=== PATIENT | female | born 1985 | race Caucasian/White ===

== ENCOUNTER 2020-05-01 07:54 | Inpatient (IN) ==
[2020-05-01] MEDS ORDERED: OXYTOCIN 30 UNITS/500 ML BAG IV PRN ×2 (08:17→09:00)
[2020-05-01] MEDS ORDERED: LACTATED RINGER'S 1,000 ML IV PRN (08:17)
[2020-05-01 08:41] LABS: Hematocrit (blood only) 38.5 % (37-47); Hemoglobin 13.1 g/dL (12.0-16.0); Mean Corpuscular Hemoglobin 30.8 pg (25-34); Mean Corpuscular Volume 90.6 fL (80-100); Mean Platelet Volume 10.3 fL (7.4-10.4); Platelet Count 202 K/uL (130-400); RDW Coefficient of Variation 14.4 % (11.5-14.5); RDW Standard Deviation 47.2 fL (36.4-46.3); Red Blood Count 4.25 M/uL (4.2-5.4); White Blood Count 12.12 K/uL (4.8-10.8)
--- NOTE | 2020-05-01 14:37 | Labor Progress Brief Note ---
Date of Service May 01, 2020 Subjective Uncomfortable. FHT Cat 1 [place] Q 2 SVE 7-8/100/-1 AROM clear fluid. Anticipate . Assessment & Plan Admission and Anticipated Discharge Date Admission Date: May 01, 2020 Results & Data ([facility]) Vital Signs (Past 12 Hours) Vital Signs Temp Pulse Resp BP 05/01/20 14:18 84 107/62 05/01/20 14:03 87 98/62 L 05/01/20 12:16 90 107/59 L 05/01/20 11:25 81 111/53 L 05/01/20 11:24 36.5 C 05/01/20 10:16 95 H 93/52 L 05/01/20 08:06 96 H 117/64 05/01/20 08:05 36.5 C 18 Coding Level of Care Code None
[2020-05-01] MEDS ORDERED: LIDOCAINE HCL 1% 20 ML VIAL ONE ×2 (14:59→16:31)
--- NOTE | 2020-05-01 15:21 | Delivery Summary ---
Vaginal Delivery Summary Date of Service May 01, 2020 Vaginal Delivery Summary Vaginal Delivery Summary: Pre-delivery diagnoses: 34yo @ 40 6/7, IOL for postdates Post-delivery diagnoses: same Procedure: spontaneous vaginal delivery, repair of 1st degree perineal laceration Surgeon: Leigha Lauren DO Complications: none Findings: Viable male . Apgars: 9/9. Weight pending, please see nursery records Estimated blood loss: 300ml Description of delivery: The patient progressed to complete with epidural anesthesia. She then began to push. She spontaneously vaginally delivered a viable from the cephalic presentation. The head delivered in GAVINO position. Posterior hand delivered spontaneously, therefore the posterior arm was swept midline and delivered. The anterior shoulder delivered, followed by the posterior shoulder, followed by the body. The baby was placed on mother's abdomen and a spontaneous cry was heard. Delayed cord clamping was employed, and the cord was doubly clamped and cut. Cord blood was obtained. The placenta was delivered spontaneously intact with a 3-vessel cord. The uterus and vagina were swept of clots and debris. IV pitocin was given. The uterus became firm. The cervix, vagina, and perineum were inspected and lidocaine was infused, and 1st degree perineal lacerationwas repaired. Excellent hemostasis was observed. The mother and baby are recovering in stable and good condition in the room. Sponge, needle and instrument counts were correct x 2. Leigha Lauren DO [facility] Vaginal Delivery Charge Vaginal Delivery Codes: 97468 global code for the antepartum, delivery, and post-
[2020-05-01] MEDS ORDERED: ACETAMINOPHEN 325 MG TAB PO PRN (15:37)
[2020-05-01] MEDS ORDERED: bisacodyL 10 MG SUPP PR PRN (15:37)
[2020-05-01] MEDS ORDERED: BENZOCAINE 20% AER SPR 82.5 GM CAN EXT PRN (15:37)
[2020-05-01] MEDS ORDERED: oxyCODONE/ACETAMINOPHEN 5mg/325mg TAB PO PRN (15:37)
[2020-05-01] MEDS ORDERED: SUPERCREAM 0.870% 15 GM JAR EXT PRN (15:37)
[2020-05-01] MEDS ORDERED: HYDROCORTISONE ACETATE 25 MG SUPP PR PRN (15:37)
[2020-05-01] MEDS: IBUPROFEN 600 MG TAB PO PRN ×2 (16:00→20:16)
[2020-05-01] MEDS ORDERED: PROMETHAZINE HCL 12.5 MG in SODIUM CHLORIDE 0.9% 50 ML IV STA (16:44)
[2020-05-01] MEDS: DOCUSATE SODIUM 100 MG CAP PO PRN (20:16)
--- NOTE | 2020-05-01 22:38 | History & Physical Report ---
Date of Service May 01, 2020 Assessment & Plan (1) Supervision of normal intrauterine in multigravida: Admit to L&D, pitocin. Plans for no epidural. Admission and Anticipated Discharge Date Admission Date: May 01, 2020 History of Present Illness Chief Complaint: IOL Primary Care Provider: Leslie Schumacher MD Late entry: 34yo @ 40 6/7. IOL for postdates. Uncomplicated . Allergies Allergy/AdvReac Type Severity Reaction Status Date / Time No Known Allergies Allergy Verified 05/01/20 08:17 Home Medications Medication Instructions Recorded Confirmed Type prenat.vits,mirian,glt-lahp-vrihr 1 tab PO DAILY #90 tab 02/05/20 05/01/20 Rx breast pump #1 ea 04/15/20 04/30/20 Rx Patient History Medical History Hx of varicella Normal vaginal delivery Surgical History No pertinent past surgical history Family History Grandfather (Paternal) Diabetes Social History Smoking Status: Never smoker Second Hand Exposure: No; Hx Alcohol Use: No Hx Substance Use: No Preferred Language: Portuguese Outreach Librarian Required: No Beliefs That Will Affect Care: None marital status: marital status details: Kameron Whiteside (38) [phone] Current Living Situation: Family Current Living Situation Comment: lives with and son current occupational status: unemployed 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 Other Information That Helps Us Care for You: No Feels Safe at Home: Yes Safety Concerns: Feels Safe At This Time Assistive Devices: None Review of Systems All systems reviewed & are unremarkable except as noted in HPI & below Physical Exam Physical Exam: FHT Cat 1 [place] none SVE 4/80/-2 Constitutional: WD/WN, vitals as above Respiratory: normal respiratory effort, lungs clear to auscultation no respiratory distress Cardiovascular: Rate/Rhythm: regular rate and regular rhythm Gastrointestinal (Abdomen): Inspection/Auscultation: abdomen normal to inspection Percussion/Palpation: abdomen soft; abdomen nontender Gravid. No s/s chorio or abruption. Skin: no rashes, warm and dry Psychiatric: A+Ox3, euthymic affect Results & Data ([facility]) Vital Signs (Past 12 Hours) Vital Signs Temp Pulse Pulse Resp BP BP 05/01/20 20:05 36.6 C 94 H 16 95/61 L 05/01/20 17:18 96 H 104/58 L 05/01/20 17:15 36.5 C 18 05/01/20 17:03 87 103/58 L 05/01/20 16:48 100 H 103/58 L 05/01/20 16:33 91 H 106/63 05/01/20 16:18 85 102/60 05/01/20 16:03 86 101/62 05/01/20 15:48 92 H 91/55 L 05/01/20 15:33 98 H 98/65 L 05/01/20 15:15 88 109/81 05/01/20 14:18 84 107/62 05/01/20 14:03 87 98/62 L 05/01/20 12:16 90 107/59 L 05/01/20 11:25 81 111/53 L 05/01/20 11:24 36.5 C 20 Code Status & VTE Plan VTE Prophylaxis Plan VTE Prophylaxis will be ordered: Yes Coding Level of Care Code None Diagnoses Supervision of normal intrauterine in multigravida Z34.80
[2020-05-02 06:56] LABS: Hematocrit (blood only) 37.3 % (37-47); Hemoglobin 12.6 g/dL (12.0-16.0)
--- NOTE | 2020-05-02 06:56 | Obstetrical Progress Note ---
Date of Service May 02, 2020 Assessment & Plan (1) : A/P: Nona Mc is a 34 y/o female on PPD#1 following IOL at 40+6wga for postdates. * Patient feels well today; eating well, voiding well, ambulating well * Pain well-controlled with ibuprofen 600mg q4h prn * PNL: Rh pos, RI, GBS neg, COVID neg * Routine postcesarean care: OOB, ambulation, diet progression as tolerated * After discharge, will have six-week follow-up with Dr. Lauren Subjective Ambulation: ambulating normally Voiding: no voiding problems Passing Gas:: Yes Diet Tolerance:: regular diet Lochia:: Small Nona Mc is a 34 y/o female on PPD#1 following IOL at 40+6wga for postdates. She reports feeling well overall this morning. Mild abdominal cramping and 5/10 pain well managed on analgesics. Voiding well. Tolerating meals overnight without difficulty. Patient has been able to ambulate some. Has persistent lochia with some improvement this morning. Currently . Constitutional: no fever and no chills Respiratory: no cough and no dyspnea Cardiovascular: no chest pain, no palpitations and no edema Gastrointestinal: no nausea and no vomiting Genitourinary (female): no dysuria Physical Exam General: alert, oriented, no acute distress Cardiac: regular rate and rhythm, no murmurs appreciated Respiratory: lungs clear to auscultation bilaterally a/p, no wheezes/rales/rhonchi, no increased work of breathing, symmetrical chest rise, no respiratory distress Abdomen: soft, minimally tender, nondistended, bowel sounds present Uterus: uterine fundus firm, palpable 2 cm below umbilicus Lower extremities: no lower extremity edema or swelling, no deep calf pain, Kristie's negative bilaterally Constitutional no acute distress Respiratory normal respiratory effort, lungs clear to auscultation Cardiovascular RRR, no murmur, no edema Gastrointestinal (Abdomen) Inspection/Auscultation: normal bowel sounds Percussion/Palpation: abdomen soft Results & Data ([facility]) Vital Signs (Past 12 Hours) Vital Signs Temp Pulse Resp BP 05/02/20 03:25 36.3 C L 92 H 16 94/62 L 05/01/20 23:00 36.6 C 82 16 101/69 05/01/20 20:05 36.6 C 94 H 16 95/61 L
[2020-05-02] MEDS: PRENATAL VITAMIN 1 TAB PO SCH (07:40)
[2020-05-02] MEDS: FERROUS SULFATE 325 MG TAB PO SCH (07:40)
[2020-05-02] MEDS: IBUPROFEN 600 MG TAB PO PRN (07:40)
[2020-05-02] MEDS: DOCUSATE SODIUM 100 MG CAP PO PRN ×2 (07:40→20:11)
[2020-05-02 18:06] VITALS: PULSE 94; TEMP 98.1; O2SAT 96
[2020-05-03 01:36] VITALS: BP 99/66
[2020-05-03] MEDS: IBUPROFEN 600 MG TAB PO PRN (02:52)
--- NOTE | 2020-05-03 04:04 | Obstetrical Progress Note ---
Date of Service May 03, 2020 Assessment & Plan (1) state: day #2 patient wishes to go home she has no extremity pain she is having minimal bleeding patti discharge instructions patient will follow up in the office Subjective Ambulation: ambulating normally Voiding: no voiding problems Passing Gas:: Yes Diet Tolerance:: regular diet Lochia:: Small Feeding Type:: breast feeding Current Pain Level(1-10): 2 Physical Exam Gastrointestinal (Abdomen) normal bowel sounds, soft, nontender, no hepatosplenomegaly (ut firm) Results & Data ([facility]) Vital Signs (Past 12 Hours) Vital Signs Temp Pulse Pulse Resp BP Pulse Ox 05/03/20 00:05 98.1 F 94 H 16 99/66 L 05/02/20 16:28 98.1 F 94 H 16 102/69 96
[2020-05-03] MEDS: PRENATAL VITAMIN 1 TAB PO SCH (08:00)
[2020-05-03] MEDS: FERROUS SULFATE 325 MG TAB PO SCH (08:00)
== END 2020-05-03 13:55 | disposition home or self-care (01) | DRG 807 ==
LOC: 4S1 07:54 → 4S2 18:49
DX: Z37.0 Single live birth; O48.0 Post-term pregnancy; O70.0 First degree perineal laceration during delivery; Z3A.40 40 weeks gestation of pregnancy; Z83.3 Family history of diabetes mellitus